=== PATIENT | male | born 1985 | race Caucasian/White ===

== ENCOUNTER → 2016-12-24 | Outpatient (CLI) | payer BC ==
--- NOTE | 2016-12-24 15:14 | KCIC ---
EXAM: Lumbar spine, 7 views. HISTORY: Pain. COMPARISON: None. FINDINGS: Frontal, lateral, bilateral oblique and odontoid views of the lumbar spine are obtained. There is mild S-shaped thoracolumbar scoliosis. There is a transitional lumbosacral segment, the right aspect of which is lumbarized. This is considered a partially lumbarized S1 segment for this dictation. 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 There is grade 1-2 anterolisthesis of L5 on S1, measuring 1.2 cm. There are pars interarticularis defects at this level. IMPRESSION: 1. Grade 1-2 anterolisthesis of L5 on S1 with associated pars interarticularis defects. 2. Mild thoracolumbar scoliosis. 3. Transitional lumbosacral segment. Electronically signed by: Ronda Mcpherson MD (12/24/2016 3:11 PM) [id number]
== END | disposition home or self-care (01) ==
LOC: KCIC 12:41
PROVIDERS: ATTEND Physician Assistant Medical
DX: M54.41 Lumbago with sciatica, right side (principal); M41.85 Other forms of scoliosis, thoracolumbar region
CPT/HCPCS: 72110

== ENCOUNTER → 2017-02-19 | Outpatient (CLI) | payer BC ==
--- NOTE | 2017-02-19 15:26 | KCIC ---
MRI Lumbar Spine without contrast History: Acute low back pain with left sciatica, low back pain for about 2 months, repetitive lifting Technique: Multiplanar, multi sequential noncontrast MR imaging was performed of the lumbar spine. Contrast: None Comparison: None Findings: There appears to be transitional anatomy of the lumbar spine. For the purpose of this report, the most inferior fully formed intervertebral disc space is considered L5-S1. There is very minimal grade 1 anterior spondylolisthesis at L5-S1 due to bilateral L5 spondylolysis. More superior intervertebral disc spaces are also somewhat small on a developmental basis. There is a hemangioma of L1 vertebral body posteriorly on the right. Conus terminates at the superior aspect of L2. There is posterior annular tear L5-S1. There is [id number] degenerative disc disease at L5-S1. L2-L3: There is negligible disc osteophyte complex. Spinal canal and neural foramina are adequate. There is mild facet hypertrophic change. L3-L4: There is negligible disc osteophyte complex. Neural foramina and spinal canal are overall adequate. There is mild facet hypertrophic change. L4-L5: Very shallow posterior mostly central protrusion without significant neural impingement descending L5 nerve roots. Spinal canal is overall adequate. Neural foramina are adequate. L5-S1: There is minimal disc osteophyte complex and bulge, more eccentric into the neural foramina greater on the right. There is severe narrowing of the right neural foramen with impingement of the exiting right L5 nerve root greater in the distal aspect of the right neural foramen. There is also fairly severe narrowing of the left neural foramen with impingement of the exiting left L5 nerve root greater in the distal left neural foramen. The spinal canal is adequate. Impression: 1. There appears to be transitional anatomy, most inferior fully formed intervertebral disc space considered L5-S1. There is very minimal grade 1 anterior spondylolisthesis at what is considered L5-S1 due to bilateral L5 spondylolysis. There is severe bilateral L5-S1 neural foramina compromise greater on the right with impingement of the exiting L5 nerve roots. There is mild to moderate degenerative disc disease at L5-S1. Electronically signed by: Shon Venegas MD (02/19/2017 3:22 PM) [id number]
== END | disposition home or self-care (01) ==
LOC: KCIC MRI 14:31
PROVIDERS: ATTEND Physician Assistant Medical
DX: M43.07 Spondylolysis, lumbosacral region (principal)
CPT/HCPCS: 72148

== ENCOUNTER → 2017-03-05 | Outpatient (CLI) | payer BC ==
[~2017-03-05] MED LIST: AMLO5TAB2 PO; GABA-585 PO; GABA-586 PO; HYDR-2758 PO; IOHEXOL 180 MG/ML 10 ML VIAL. ONE; LISI1TAB7 PO; methylPREDNISolone ACETATE 40 MG/ML VIAL. ONE; methylPREDNISolone ACETATE 80 MG/ML VIAL. ONE
--- NOTE | 2017-03-05 15:37 | PAIN ---
DATE OF SERVICE: 03/05/2017 PAIN CLINIC INITIAL CONSULTATION DATE OF SERVICE: 03/05/2017 CHIEF COMPLAINT: Low back and right lower extremity pain. HISTORY OF PRESENT ILLNESS: This is a 31-year-old male who presents with history of pain in low back, right lower extremity since early December for about 2-1/2 months. The patient reports it is getting worse. It was not a result of any specific injury or accident that he is aware of. It is now constant, sharp, stabbing, shooting, throbbing, tingling, numbness with radiation to the right leg, changes during the day, worse with activity, standing, walking, changing positions, better with lying down, but does wake him from sleep occasionally, not every night, but if it does, it is only once a night. The patient reports the pain is radiating from the low back into the right hip, right lateral anterior thigh, medial thigh, posterior thigh, posterior calf, lateral calf into the ankle on the right side only. No symptoms on the left side at this time. The patient has had physical therapy as well as chiropractic treatment, which is ongoing, which helped to some extent, but only about 20%-30%. The patient reports he is taking Meloxicam, gabapentin, hydrocodone, each of which helps a very small amount, but still significant pain with weightbearing on the right leg. The patient rates his disability on a scale of 0-10, 10 being the worst, is an 8 with family and home responsibilities, occupation and sexual behavior, 9 with social activity, 10 with recreation, 0 with life support activities. The patient did have MRI scan of the lumbar spine dated 02/19/2017 showing very shallow protrusion at L4-L5, mostly central without significant impingement on the descending L5 nerve root. L5-S1 shows disk osteophyte complex and bulge more eccentric to the right neural foramen, greater on the right with severe narrowing of the right neural foramen with impingement of the exiting right L5 nerve roots, greater on the distal aspect of the right neural foramen, also fairly severe narrowing of the left neural foramen with impingement of the exiting left L5 nerve root. The patient reports no loss of motor function, but significant fatigability in the right lower extremity, especially with standing and walking or driving. PAST MEDICAL HISTORY: Significant for hypertension, arthritis. PAST SURGICAL HISTORY: None. CURRENT MEDICATIONS: Include lisinopril, hydrocodone, gabapentin, and amlodipine. ALLERGIES: The patient has no known drug allergies. FAMILY HISTORY: Significant for hypertension. SOCIAL HISTORY: The patient does not drink, does not smoke or use tobacco products, is and lives with his spouse, has one child living at home and lives locally in [place], [place]. 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 REVIEW OF SYSTEMS: The patient's review of systems is positive for those items mentioned in history of present illness. All systems reviewed and otherwise negative. It is complete, full and well documented on the patient's chart. PHYSICAL EXAMINATION: VITAL SIGNS: The patient's blood pressure 131/91, pulse is 116, respirations are 18, temperature is 98.6 degrees Fahrenheit, height 6 feet, weight is 235 pounds. GENERAL: The patient is awake, alert, oriented, appropriate, very pleasant demeanor. HEENT: Head shows normocephalic, atraumatic. Extraocular movements are intact and symmetrical. Oral cavity shows mucous membranes moist and pink. Dentition is intact. NECK: Shows anterior throat supple without palpable lymphadenopathy noted. Swallow reflex is symmetrical. CHEST: Shows normal on inspection. Breath sounds are clear to auscultation bilaterally. HEART: Shows S1 and S2 clear. No murmurs auscultated. ABDOMEN: Soft, nontender, nondistended. No palpable organomegaly noted. No rebound or guarding demonstrated. BACK: The patient's back shows spine grossly in midline. Normal appearing thoracic kyphosis, lumbar lordotic curvature. Lumbar paraspinous muscle shows symmetrical on inspection with palpation shows mild to moderate tenderness with palpation throughout the upper, middle, lower distribution of paraspinous muscles, but without radiation. No asymmetry, no trigger points, no tenderness over the spinous processes. There is no tenderness over the sacrum or sacroiliac regions. The patient shows good rotational motion of lumbar spine, both laterally greater than 10 degrees right and left as well as extension greater than 10 degrees, forward flexion 45 degrees without significant pain reported. EXTREMITIES: The patient's lower extremities showed deep tendon reflexes at 2+ in the patellar, 1+ tendo-calcaneus tendons are equal. Motor exam is strong with 5/5 dorsiflexion, extension, quadriceps and hamstring flexion and are symmetrical as well. Peripheral pulses are 2+ posterior tibial. No peripheral edema is noted. No clubbing, no cyanosis. Lower extremities are warm and dry to touch, equal in color and appearance. Straight leg raise noted to be positive on the right at about 35 degrees, which is decreased with knee flexion, but not relieved. Left side is negative. Gaenslen's and Thomas's maneuvers are negative bilaterally. The patient is able to stand, stand on his toes without significant difficulty or loss of balance. He is walking with a normal appearing gait without any assistive devices, but does appear to favor the right lower extremity with standing more than just a few minutes, then he starts to lean on his left side, also with sitting, he is leaning on his left side. IMPRESSION: 1. This is a 31-year-old male with a history of about 2-1/2 months increasing pain in low back, right lower extremity in a radicular fashion. 2. MRI scan of lumbar spine as noted. 3. Hypertension. PLAN: Options were discussed with the patient including conservative medical management, physical therapy, interventional technique. He would like to pursue interventional techniques. We discuss a lumbar epidural steroid injection using description as well as anatomical models to describe the procedure. Risks were then discussed including, but not limited to bleeding, infection, possibility of epidural hematoma, subsequent neurologic compromise, dural puncture, headaches, spinal cord and/or nerve damage, side effects of steroid medication and poor results regarding pain control. The patient understands and wishes to proceed. The patient will return to clinic in approximately 2 weeks for followup, was counseled on return appointment, activity level and side effects to be aware of. DIAGNOSIS: Lumbar radiculopathy with lumbar degenerative disk disease, spinal stenosis. PROCEDURE: Lumbar epidural steroid injection in translaminar approach at L5-S1 level using C-arm fluoroscopic guidance. Under sterile prep and drape using local anesthetic. Medication injected is a total of 120 mg of Depo-Medrol plus 10 mL preservative-free normal saline, 2 mL Isovue for contrast. CONDITION AT DISCHARGE: Stable. The patient tolerated procedure well, had no complications. AMAURY WU MD DR: AI/christofer JOB#: [id number] / [id number] LIA Simms PA-C
== END | disposition home or self-care (01) ==
LOC: PNCL 13:18
PROVIDERS: ATTEND Anesthesiology
DX: M51.16 Intervertebral disc disorders with radiculopathy, lumbar region (principal); M48.06 Spinal stenosis, lumbar region; M19.91 Primary osteoarthritis, unspecified site; I10 Essential (primary) hypertension; Z82.49 Family history of ischemic heart disease and other diseases of the circulatory system
CPT/HCPCS: 62323; J1030; J1040

== ENCOUNTER → 2017-03-19 | Outpatient (CLI) | payer BC ==
--- NOTE | 2017-03-20 12:51 | PAIN ---
DATE OF SERVICE: 03/19/2017 DATE OF SERVICE: 03/19/2017 DIAGNOSES: Lumbar radiculopathy with lumbar degenerative disk disease and lumbar spinal stenosis. HISTORY OF PRESENT ILLNESS: The patient is a 31-year-old male who returns for followup status post lumbar epidural steroid injection x 1. The patient reports approximately 15%-20% improvement overall, but still some decreased pain in his right leg and lower extremities. Still some pain in the right foot and leg with ambulating, standing, and changing positions. The patient reports it is a 9 on a scale of 10 at its worst, can be as low as a 4, but is an average about 8. The patient reports it is an aching, sharp tight shooting, stabbing, cramping, burning, tingling with severe radiating pain, but it is on and off. It is not persistent. It is not consistent as it was previously. The patient reports no new motor or sensory deficits, no new bowel or bladder incontinence or other complaints. The patient reports he sleeps about 5 hours a night at a time, it does awaken him from sleep occasionally, but not every night. He can generally reposition and get back to sleep. PHYSICAL EXAMINATION: VITAL SIGNS: The patient's blood pressure 149/51, pulse is 105, temperature 98.2 degrees Fahrenheit, respirations 18. Height is 6 feet, weight is 236 pounds. GENERAL: The patient is awake, alert, oriented, appropriate, very pleasant demeanor. HEENT: Shows normocephalic, atraumatic. Extraocular movements are intact and symmetrical. The patient wears eye glasses. Oral cavity: Mucous membranes moist and pink. Dentition is intact. NECK: Shows anterior throat supple without palpable lymphadenopathy noted. Swallow reflex is symmetrical. CHEST: Shows normal on inspection. Breath sounds are clear to auscultation bilaterally. HEART: Shows S1 and S2 clear. No murmurs auscultated. ABDOMEN: Soft, nontender, nondistended. No palpable organomegaly, no rebound or guarding demonstrated. BACK: Shows spine grossly midline. Normal appearing thoracic kyphosis and lumbar lordotic curvature. Lumbar paraspinous musculature shows symmetrical on inspection, with palpation shows some moderate tenderness only in the low lumbar distribution bilaterally, but only diffusely without radiation in the right or left lower extremity, no tenderness in the posterior sacrum or the sacroiliac regions. The patient shows good rotation and motion of the lumbar spine, both laterally greater than 10 degrees right and left as well as extension greater than 10 degrees, forward flexion 45 degrees without significant pain reported. EXTREMITIES: Lower extremities showed deep tendon reflexes at 2+ in the patellar, 1+ tendo-calcaneus tendons are equal. Motor exam is strong with 5/5 dorsiflexion, extension, quadriceps and hamstring flexion and symmetrical. Peripheral pulses are 1+ posterior tibial and dorsalis pedis pulses. No peripheral edema is noted bilaterally. Options were discussed with the patient and the patient's old chart was reviewed. His current medication regimen updated. Current review of systems updated today as well. We will proceed with a second in the series of lumbar epidural steroid injection using C-arm fluoroscopic guidance. Risks were again discussed including, but not limited to bleeding, infection, possibility of epidural hematoma and subsequent neurologic compromise, dural puncture, headaches, spinal cord and/or nerve damage, side effects of steroid medication and poor results regarding pain control. The patient understands and wishes to proceed. The patient will return to clinic in approximately 2 weeks for followup. He was counseled on return appointment, activity level and side effects to be aware of. DIAGNOSIS: Lumbar radiculopathy with lumbar spinal stenosis, lumbar degenerative disk disease. PROCEDURE: Lumbar epidural steroid injection in translaminar approach at the L5-S1 level using C-arm fluoroscopic guidance under sterile prep and drape using local anesthetic. MEDICATION INJECTED: A total of 120 mg Depo-Medrol plus 10 mL preservative-free normal saline and 2 mL Isovue for contrast. CONDITION AT DISCHARGE: Stable. The patient tolerated the procedure well, had no complications. AMAURY WU MD DR: AI/christofer JOB#: [id number] / [id number]
== END | disposition home or self-care (01) ==
LOC: PNCL 13:11
PROVIDERS: ATTEND Anesthesiology
DX: M51.16 Intervertebral disc disorders with radiculopathy, lumbar region (principal); M48.06 Spinal stenosis, lumbar region
CPT/HCPCS: 62323; J1030; J1040

== ENCOUNTER → 2017-04-02 | Outpatient (CLI) | payer BC ==
--- NOTE | 2017-04-02 18:09 | PAIN ---
DATE OF SERVICE: 04/02/2017 DIAGNOSES: Lumbar radiculopathy with lumbar spinal stenosis, lumbar degenerative disk disease. HISTORY OF PRESENT ILLNESS: The patient is a 31-year-old male who returns for followup status post lumbar epidural steroid injections x 2. The patient reports only about 25% improvement overall with his pain. The patient reports still significant pain in the low back and right lower extremity as it was previously. The patient reports that it seems to be worse with standing, walking, change in positions and he is in and out of his vehicle with work. 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 This being , the pain is significant and 9 on a scale of 10, which is at its worst. It averages at about 7, least about a 6 when he is lying down, but is wakening from sleep again as the week goes on. The patient reports aching, sharp, shooting tight stabbing, burning, cramping, constant severe reports no loss of motor function, but significant pain in the low back and right lower extremity as it was previously. Review of the patient's MRI scan shows significant severe stenosis at the L5-S1 with neural foraminal compromise, greatest on the right with impingement of exiting L5 nerve roots. The patient reports no new motor or sensory deficits. No new bowel or bladder incontinence. PHYSICAL EXAMINATION: VITAL SIGNS: The patient's blood pressure 141/96, pulse 114, respirations are 16, temperature is 98.1 degrees Fahrenheit. Height is 6 feet, weight is 238 pounds. GENERAL: The patient is awake, alert, oriented, appropriate, very pleasant demeanor. HEENT: Head shows normocephalic, atraumatic. Extraocular movements are intact and symmetrical. Oral cavity shows mucous membranes moist and pink. Dentition is intact. NECK: Shows anterior throat supple without palpable lymphadenopathy noted. Swallow reflex is symmetrical. CHEST: Shows normal on inspection. Breath sounds clear to auscultation bilaterally. HEART: Shows S1 and S2 clear. No murmurs auscultated. ABDOMEN: Soft, nontender, nondistended. No palpable organomegaly is noted. BACK: Shows spine grossly midline. The patient's lumbar distribution shows normal appearing lumbar lordotic curvature. Paraspinous musculature is symmetrical on inspection with palpation shows moderate tenderness diffusely with palpation bilaterally. No radiation of pain, no tenderness over the sacrum or sacroiliac regions. Lower extremities showed deep tendon reflexes at 2+ in the patellar, 1+ tendo-calcaneus tendons are equal. Motor exam is strong with 5/5 dorsiflexion, extension, quadriceps and hamstring flexion and symmetrical as well. Options were discussed with the patient and the patient's old chart was reviewed as his current medication regimen and updated. Current review of systems updated today as well. We will proceed with a third in the series of lumbar epidural steroid injection today with fluoroscopic guidance. Risks were again discussed including, but not limited to bleeding, infection, possibility of epidural hematoma, subsequent neurologic compromise, dural punctures, headaches, spinal cord and/or nerve damage, side effects of steroid medication and poor results regarding pain control. The patient understands and wishes to proceed. The patient will return to clinic in approximately 2 weeks for followup, was counseled on return appointment, activity level and side effects to be aware of. DIAGNOSIS: Lumbar radiculopathy with lumbar spinal stenosis, lumbar degenerative disease. PROCEDURE: Lumbar epidural steroid injection in translaminar approach L5-S1 mL per fluoroscopic guidance, a sterile prep and drape using local anesthetic. MEDICATIONS INJECTED: A total of 120 mg of Depo-Medrol plus total of 10 mL of preservative-free normal saline and 2 mL Isovue for contrast.. CONDITION AT DISCHARGE: Stable. The patient tolerated procedure well, had no complications. AMAURY WU MD DR: AI/christofer JOB#: [id number] / [id number]
== END | disposition home or self-care (01) ==
LOC: PNCL 13:22
PROVIDERS: ATTEND Anesthesiology
DX: M51.16 Intervertebral disc disorders with radiculopathy, lumbar region (principal); M48.061 Spinal stenosis, lumbar region without neurogenic claudication
CPT/HCPCS: 62323; J1030; J1040